=== PATIENT | male | born 1950 | race Caucasian/White ===

== ENCOUNTER 2017-06-06 11:57 | Inpatient (IN) | payer OTHER ==
[~2017-06-06] VITALS: Ht 177.8 cm; Wt 95.3 kg
--- NOTE | ~2017-06-06 | EKG ---
[address] [address] ELECTROCARDIOGRAM REPORT Name: NATALIA SERVIN MARIELLA Room #: 212-P ADM IN M.R.#: [id number] Admission: 06/06/17 Attend Phys: Wander Knapp DO Discharge: Date of : 48 Report #: [id number] THIS REPORT FOR: //name// [facility] Test Date: 2017-06-06 Test Time: 14:05:06 Pat Name: NATALIA SERVIN Department: Room: 212 Gender: M Merchandising Intern: ABBEY : 1950 Requested By: Wander Knapp Order Number: [id number] MD: Matthew Fink Measurements Intervals [place] Rate: 65 P: 46 WI: 169 QRS: 41 QRSD: 79 T: 32 QT: 415 QTc: 432 Interpretive Statements Sinus rhythm nonspecific T-wave abnormalities Compared to ECG 02/25/1993 08:03:00 No significant changes Electronically Signed On 06-07-2017 10:28:17 CDT by Matthew Fink [email or web address] <ELECTRONICALLY SIGNED> By: Matthew Fink MD 06/07/17 1028 1405 1405 MD NGUYEN Dietz
--- NOTE | ~2017-06-06 | CATHLAB ---
[facility] [address] [place] [address] INVASIVE PROCEDURE REPORT Name: DIXIEAUSTINNATALIA MARIELLA Room #: 212-P [facility] IN ..#: [id number] Admission: 06/06/17 Attend Phys: Wander Knapp, Discharge: Date of : 48 Date of Service: 06/06/17 1657 Report #: [id number] THIS REPORT FOR: //name// APPROVED REPORT Study performed: 06/06/2017 15:16:51 Patient Details Patient Status: In-Patient Room #: The patient is a 66 year-old male Event Personnel Matthew Fink Director [employer], Celeste Roldan Monitor, Violeta Luna RTR, Cherelle Bro Wes cleaning associate Performed Art Access - R femoral artery* Left Heart Cath w/or w/o Coronaries 2901318 [facility] ROHIT Revasc AMI Total/Sub Single LAD C9606 AMIREVSING 03885 Initial Mod Sed Same Phys/QHP Gr5y 868041 42119 Mod Sed Same Phys/QHP Ea 318790 Hemostasis with Manual pressure Indication Non-STEMI , Dyspnea, Chest pain Risk Factors Obesity, Hypercholesterolemia, Hypertension, Diabetes Procedure Narrative The patient was brought urgently to the Cardiac Catheterization Laboratory and was prepped and draped in a sterile manner. The Right Groin^ was infiltrated with 1% Lidocaine subcutaneous anesthesia. A PINNACLE 4FR Sheath #[id number] sheath was inserted into the RFA^. Coronary angiography was performed using coronary diagnostic catheters. The right coronary system was accessed and visualized with a JR 4 catheter. The left coronary system was accessed and visualized with a JL 4 catheter. The left ventricle was accessed and visualized with a Pigtail catheter. Left ventricular/Aortic Valve gradient assessed via catheter pullback. Left ventriculogram was performed in ALY projection. The patient tolerated the procedure well and there were no complications associated with the procedure. There was no hematoma. Sheath was sutured into place Intraoperative Conscious Sedation Sedation start time: 15:55 Case end Time: [facility] [address] [place] [address] INVASIVE PROCEDURE REPORT Name: DIXIEAUSTINNATALIA MARIELLA Room #: 212-P [facility] IN [facility]#: [id number] Admission: 06/06/17 Attend Phys: Wander Knapp, Discharge: Date of : 48 Date of Service: 06/06/17 1657 Report #: [id number] 16:37 Fentanyl 50 mcg Versed 1.5 mg Fluoro Time: 9.31 minutes Dose: DAP 52315.80 cGycm2 1447 mGy Contrast Type and Amount: Omnipaque 210 ml Coronary Angiography The patient's coronary anatomy is co- dominant. Diagnostic Cath Left Main Patent vessel, with no flow-limiting lesions. LAD There is moderate stenosis in the proximal segment, 40%. There is 100% occlusion within the mid segment. The distal segment is partially filled via collateral circulation. Circumflex Codominant vessel, with mild disease in the proximal segment. OM1 Supplies 2 branches after the proximal segment. The superior branch has moderate diffuse disease. OM2 Patent vessel, with no flow-limiting lesions. Right Coronary Patent vessel, with no flow-limiting lesions. R PDA Small-caliber vessel, with no flow-limiting lesions. Left Ventriculography The left ventricle is normal in size with decreased contractility. The left ventricular ejection fraction is estimated to be 40-45%. There is hypokinesis of the distal anteroapical and distal inferior segments. Hemodynamics The aortic pressure is 160/67 mmHg with a mean of 107 mmHg. The left ventricular pressure is 126/22 mmHg with a mean of mmHg. The left ventricular end diastolic pressure is 37 mmHg. PCI Technique Lesion Anticoagulation was achieved with Angiomax. Patient was preloaded with Plavix. Percutaneous coronary intervention was performed on the mid left anterior descending artery segment. The lesion stenosis prior to intervention was 99% with ANEUDY 1 flow. A VISTA 6FR JL4 #[id number] Guide Catheter was used to engage the ostium. A Runthrough Wire .014 X 180 #[id number] Interventional Guidewire was used to cross the lesion. BALLOON DILATION A Balloon catheter Euphora RX 2.5 x 12 #[id number] was inserted and inflated up to 8.00atm for 10seconds. [facility] [address] [place] [address] INVASIVE PROCEDURE REPORT Name: NATALIA SERVIN Room #: 212-P [facility] IN M.R.#: [id number] Admission: 06/06/17 Attend Phys: Wander Knapp, Discharge: Date of : 48 Date of Service: 06/06/17 1657 Report #: [id number] STENT DEPLOYMENT A drug-eluting stent RESOLUTE RX 3.0 X 15 #[id number] was inserted and inflated up to 9.00atm for 20seconds. POST STENT DEPLOYMENT BALLOON DILATION A Balloon catheter [employer] limited[employer] NC 3 x 8 was inserted and inflated up to 16.00atm for 23seconds. Final angiography reveals 0 % stenosis with ANEUDY 3 flow. Conclusion 1. Successful insertion of a drug-eluting stent into the total occlusion within the mid segment of the LAD, with mandaen of ANEUDY-3 blood flow. 2. Codominant left circumflex system. There is moderate disease in the first OM. 3. Mild to moderate segmental LV dysfunction. 4. Recommend dual antiplatelet therapy. <ELECTRONICALLY SIGNED> By: Matthew Fink MD 06/06/171656 56 56 Matthew Fink MD /INF
--- NOTE | ~2017-06-06 | EKG ---
[address] [place] [address] ELECTROCARDIOGRAM REPORT Name: DIXIEAUSTINNATALIA Room #: 212- ADM IN M.R.#: [id number] Admission: 06/06/17 Attend Phys: Wander Knapp DO Discharge: Date of : 48 Report #: [id number] THIS REPORT FOR: //name// [facility] Test Date: 2017-06-07 Test Time: 06:59:53 Pat Name: NATALIA SERVIN Department: Room: 212 P Gender: M Locomotive Driver: kelly : 1950 Requested By: Matthew Fink Order Number: [id number] MD: Matthew Fink Measurements Intervals [place] Rate: 78 P: 49 MI: 150 QRS: 41 QRSD: 75 T: 52 QT: 441 QTc: 503 Interpretive Statements Sinus rhythm Abnormal T, consider ischemia, anterior leads Prolonged QT interval Compared to ECG 02/25/1993 08:03:00 T-wave abnormality now present Possible ischemia now present Prolonged QT interval now present Electronically Signed On 06-07-2017 10:36:28 CDT by Matthew Fink [email or web address] <ELECTRONICALLY SIGNED> By: Matthew Fink MD 06/07/17 1036 0659 0659 Matthew Fink MD /LUKAS
--- NOTE | ~2017-06-06 | EKG ---
[address] [place] [address] ELECTROCARDIOGRAM REPORT Name: ZEYAD SERVINHANNA Room #: 212-P ADM IN M.R.#: [id number] Admission: 06/06/17 Attend Phys: Wander Knapp DO Discharge: Date of : 48 Report #: [id number] THIS REPORT FOR: //name// [facility] Test Date: 2017-06-06 Test Time: 17:28:39 Pat Name: NATALIA SERVIN Department: Room: 212 P Gender: M Air Director: Kathya OBRIEN : 1950 Requested By: Matthew Fink Order Number: [id number] MD: Matthew Fink Measurements Intervals [place] Rate: 88 P: 97 KS: 249 QRS: 42 QRSD: 87 T: 31 QT: 377 QTc: 457 Interpretive Statements Sinus rhythm Prolonged KS interval Consider left atrial enlargement Minimal ST depression, lateral leads Borderline ST elevation, anterior leads Compared to ECG 02/25/1993 08:03:00 First degree AV block now present ST (T wave) deviation now present Electronically Signed On 06-07-2017 10:30:53 CDT by Matthew Fink [email or web address] <ELECTRONICALLY SIGNED> By: Matthew Fink MD 06/07/17 1030 1728 1728 Matthew Fink MD /EPI
[2017-06-06 13:26] VITALS: BP 158/88
[2017-06-06 14:40] LABS: HEMATOCRIT 45.7 % (42.0-52.0); HEMOGLOBIN 15.8 gm/dL (14.0-18.0); MCHC 34.5 g/dL (28.0-37.0); MCV 81.2 fL (80.0-100.0); RBC 5.63 mil/uL (4.50-6.00); RDW 13.4 % (10.5-14.5); WBC 14.7 thou/uL (4.0-11.0)
[2017-06-06 14:55] LABS: CALCIUM 9.1 mg/dL (8.5-10.1); CREATININE 0.8 mg/dL (0.7-1.3); POTASSIUM 3.6 mmol/L (3.5-5.1)
[2017-06-06] MEDS ORDERED: WELCHOL 625 MG625 MG PO (14:59)
[2017-06-06] MEDS ORDERED: NEURONTIN600 MG PO (15:00)
[2017-06-06] MEDS ORDERED: AMARYL4 MG PO (15:00)
[2017-06-06] MEDS ORDERED: GLUCOPHAGE XR500 MG PO (15:02)
[2017-06-06] MEDS ORDERED: ATENOLOL 100MG100 M2 PO (15:03)
[2017-06-06] MEDS ORDERED: ZANAFLEX4 MG PO (15:06)
[2017-06-06] MEDS ORDERED: NEXIUM40 MG PO (15:07)
[2017-06-06] MEDS ORDERED: NOVOLOG100 UNIT/1 SUBQ (15:08)
[2017-06-06] MEDS ORDERED: LEVEMIR100 UNIT/1 SUBQ (15:09)
[2017-06-06] MEDS ORDERED: TRAMADOL 50 MG50 MG PO (15:10)
[2017-06-06 15:11] LABS: INR 1.1; PROTIME 11.5 Seconds (9.3-11.4)
[2017-06-06] MEDS ORDERED: VASOTEC5 MG PO (15:11)
[2017-06-06] MEDS ORDERED: NITRO-DUR1 EAC1 TRANSDERM (15:15)
[2017-06-06] MEDS ORDERED: NITROGLYCERIN0.4 MG SUBLING (16:05)
[2017-06-06 17:00] VITALS: BP 173/88
[2017-06-07 03:13] VITALS: BP 132/54
[2017-06-07 07:25] VITALS: BP 151/71
[2017-06-07] MEDS ORDERED: CLOPIDOGREL75 MG PO (08:39)
[2017-06-07] MEDS ORDERED: ATORVASTATIN CA40 MG PO (08:39)
[2017-06-07] MEDS ORDERED: COREG6.25 MG PO (08:40)
[2017-06-07] MEDS ORDERED: ENALAPRIL MALEAT5 M1 PO (08:40)
[2017-06-07 10:47] VITALS: BP 151/71
== END 2017-06-07 11:13 | disposition home or self-care (01) | DRG 246 ==
LOC: 2N 11:57
PROVIDERS: Family Medicine
PROC: B2111ZZ Fluoroscopy of Multiple Coronary Arteries using Low Osmolar Contrast (ICD-10-PCS; principal; 2017-06-06)
PROC: 027034Z Dilation of Coronary Artery, One Artery with Drug-eluting Intraluminal Device, Percutaneous Approach (ICD-10-PCS; principal; 2017-06-06)
PROC: B2151ZZ Fluoroscopy of Left Heart using Low Osmolar Contrast (ICD-10-PCS; principal; 2017-06-06)
PROC: 4A023N7 Measurement of Cardiac Sampling and Pressure, Left Heart, Percutaneous Approach (ICD-10-PCS; principal; 2017-06-06)
DX: I21.4 Non-ST elevation (NSTEMI) myocardial infarction (principal); I50.43 Acute on chronic combined systolic (congestive) and diastolic (congestive) heart failure; E11.9 Type 2 diabetes mellitus without complications; F41.9 Anxiety disorder, unspecified; I25.10 Atherosclerotic heart disease of native coronary artery without angina pectoris; E78.5 Hyperlipidemia, unspecified; K21.9 Gastro-esophageal reflux disease without esophagitis; G89.29 Other chronic pain; M54.9 Dorsalgia, unspecified; Z89.9 Acquired absence of limb, unspecified; Z82.49 Family history of ischemic heart disease and other diseases of the circulatory system; Z88.0 Allergy status to penicillin; Z79.899 Other long term (current) drug therapy; Z79.82 Long term (current) use of aspirin; I11.0 Hypertensive heart disease with heart failure
CPT/HCPCS: 10797

== ENCOUNTER → 2020-08-23 | Outpatient (CLI) | payer OTHER ==
[~2020-08-23] MED LIST: AMARYL4 MG PO; ATENOLOL 100MG100 M2 PO; ATORVASTATIN CA40 MG PO; CLOPIDOGREL75 MG PO; COREG6.25 MG PO; ENALAPRIL MALEAT5 M1 PO; GLUCOPHAGE XR500 MG PO; LEVEMIR100 UNIT/1 SUBQ; NEURONTIN600 MG PO; NEXIUM40 MG PO; NITRO-DUR1 EAC1 TRANSDERM; NITROGLYCERIN0.4 MG SUBLING; NOVOLOG100 UNIT/1 SUBQ; TRAMADOL 50 MG50 MG PO; VASOTEC5 MG PO; WELCHOL 625 MG625 MG PO; ZANAFLEX4 MG PO
== END ==
LOC: CAT 09:37
PROVIDERS: ATTEND Family Medicine
DX: M43.16 Spondylolisthesis, lumbar region (principal); M25.78 Osteophyte, vertebrae; M50.323 Other cervical disc degeneration at C6-C7 level; M48.02 Spinal stenosis, cervical region; M50.33 Other cervical disc degeneration, cervicothoracic region; M51.36 Other intervertebral disc degeneration, lumbar region; M51.26 Other intervertebral disc displacement, lumbar region

== ENCOUNTER 2020-09-10 11:28 | Inpatient (IN) | payer OTHER ==
[~2020-09-10] VITALS: Ht 177.8 cm; Wt 84.8 kg
[2020-09-10 11:28] VITALS: BP 182/77
[2020-09-10 12:11] LABS: ABSOLUTE NEUTROPHILS 6.5 thou/uL (1.4-8.2); EOSINOPHILS 1.7 % (0.0-3.0); HEMATOCRIT 44.2 % (42.0-52.0); HEMOGLOBIN 15.3 gm/dL (14.0-18.0); LYMPHOCYTES 21.9 % (24.0-44.0); MCH 29.1 pg (26.0-34.0); MCHC 34.7 g/dL (28.0-37.0); MCV 83.8 fL (80.0-100.0); MONOCYTES 10.4 % (1.0-8.0); PLATELET COUNT 193 thou/uL (150-400); RBC 5.27 mil/uL (4.50-6.00)
[2020-09-10 12:17] LABS: ANION GAP 9 mmol/L (7-16); BUN 13 mg/dL (7-18); CALCIUM 9.3 mg/dL (8.5-10.1); CHLORIDE 103 mmol/L (98-107); CO2 25 mmol/L (21-32); CREATININE 1.1 mg/dL (0.7-1.3); GLUCOSE 265 mg/dL (74-106); POTASSIUM 3.6 mmol/L (3.5-5.1); SODIUM 137 mmol/L (136-145)
[2020-09-10 12:27] LABS: ALBUMIN 3.1 g/dL (3.4-5.0); MAGNESIUM 1.9 mg/dL (1.8-2.4); SGOT 26 U/L (15-37); SGPT 27 U/L (16-63); TOTAL BILIRUBIN 0.6 mg/dL (0.2-1.0); TOTAL PROTEIN 7.2 g/dL (6.4-8.2); TROPONIN-I <0.06 ng/mL (<0.06)
--- NOTE | 2020-09-10 12:34 | EKG ---
[address] [place] [address] ELECTROCARDIOGRAM REPORT Name: NATALIA SERVIN MARIELLA [id number] Admission: 09/10/20 Attend Phys: Discharge: Date of : 48 Report #: [id number] [facility] ED Test Date: 2020-09-10 Test Time: 11:29:59 Pat Name: NATALIA SERVIN Department: Room: Gender: M School Bus Driver/Custodian: JCFE : 1950 Requested By: Jo Ann Bonilla Order Number: [id number] MD: Car Palma Measurements Intervals [place] Rate: 59 P: 51 MT: 194 QRS: 21 QRSD: 84 T: 70 QT: 415 QTc: 412 Interpretive Statements Sinus rhythm Compared to ECG 06/07/2017 06:59:53 anterior wall ischemic changes previous ECG Electronically Signed On 09-10-2020 12:33:43 CDT by Car Palma [email or web address] <ELECTRONICALLY SIGNED> By: Car Palma MD, [facility] 09/10/20 1233 1129 1129 Car Palma MD, FACC /EPI
[2020-09-10 13:52] LABS: URINE BILIRUBIN NEGATIVE (Negative); URINE BLOOD NEGATIVE (Negative); URINE CLARITY CLEAR; URINE COLOR YELLOW; URINE GLUCOSE-RANDOM* 2+ (Negative); URINE KETONES NEGATIVE (Negative); URINE LEUKOCYTES-REFLEX NEGATIVE (Negative); URINE NITRITE-REFLEX NEGATIVE (Negative); URINE PROTEIN (DIPSTICK) NEGATIVE (Negative); URINE UROBILINOGEN 0.2 E.U./dl (0.2-1.0)
[2020-09-10 16:37] VITALS: BP 150/74
[2020-09-10 16:50] VITALS: BP 176/73
[2020-09-10 17:07] LABS: CHOLESTEROL 224 mg/dL (<200); HDL CHOLESTEROL 31 mg/dL (>40); LDL CHOLESTEROL 164 mg/dL (<100); TC:HDL 7.2 Ratio (Not establshd); TRIGLYCERIDE 149 mg/dL (<150); VLDL 30 mg/dL (<40)
[2020-09-10] MEDS ORDERED: METFORMIN HCL500 MG PO (19:17)
--- NOTE | 2020-09-10 19:59 | NUR ---
Pt arrived to floor from emergency dept around 1725 in stable condition. Admission hx,assessment and careplan completed.Pt son reported that home med list was given to EMS on their way to [facility] from [facility] but never given back to them.Dinner tray given and well tolerated. Son will be leaving for home before 2099. Report off to melissa rn.
--- NOTE | 2020-09-11 04:35 | NUR ---
Pt. requesting pain meds and Ava LAMAS called and she put some of the patients home meds in. Pain med given (see emar) with some relief. He has been voiding per urinal. Bed alarm is on.
[2020-09-11 05:06] LABS: GLYCOHEMOGLOBIN (HGB A1C) 12.5 % (4.8-5.6)
[2020-09-11 07:15] VITALS: BP 162/83
[2020-09-11 15:50] VITALS: BP 117/60
--- NOTE | 2020-09-11 18:41 | NUR ---
ASSUMED CARE OF PATIENT AT SHIFT CHANGE. ASSESSMENT CHARTED. MEDICATIONS GIVEN PER MAR. VSS. PATIENT IS A&OX4 AND MAKES NEEDS KNOWNL PATIENT IS ALSO EAGLE. PATIENT WORKED WITH PT/OT AND DID WELL BUT DOES CONTINUE TO HAVE DIZZINESS IF MOVING TOO FAST AND WHEN TURING HEAD FROM SIDE TO SIDE. PATIENT USING URINAL NEEDED BUT CAN GET UP TO BATHROOM WITH STANDBY ASSISTANCE. PATIENT IS TOLERATING PO INTAKE WELL HOWEVER FSBS HIGH. PATIENT VOICING PAIN RELIEVED BY MUSCLE RELAXER. WILL NEED TRAMADOL HS FOR SLEEP. PATIENT IS PROGRESSING WELL TOWARDS DISCHARGE; VOICING NO OTHER NEEDS. WILL CONTINUE TO MONITOR AND ENDORSE TO ONCOMING NURSE
[2020-09-11 19:50] VITALS: BP 138/70
--- NOTE | 2020-09-12 04:33 | NUR ---
Pt. rested quietly at intervals during the night when checked on during frequent rounds. He was given po pain med (see emar) with some relief of pain noted. Bed alarm is on.
[2020-09-12 08:09] VITALS: BP 126/55
[2020-09-12 12:58] VITALS: BP 126/55
--- NOTE | 2020-09-12 15:30 | NUR ---
Assumed pt care at 7am.Pt in bed very anxious about going for mri today. Assessment completed.vss. Dr Alberto here,stated that pt will be dc home after mri and possibly after lunch.Pt left for mri after breakfast and returned to room. Mri result was negative. Later this afternoon ,dc order noted but pt wanted to stay till next day due to lack of air condition in the mobile home. manager star notified, she give pt cab voucher. Dc summary compile and reviewed with pt.At 1430,pt dc home per wc accompanied by broadloom weaver.
--- NOTE | 2020-09-12 15:34 | NUR ---
PT ADMITTED RELATED TO VERTIGO, ATAXIA, AND HYPERGLYCEMIA. CM REVIEWED CHART AND SPOKE WITH CARE TEAM. CM MET WITH PT BEDSIDE THIS DAY. HE INDICATED THAT HE RESIDES IN A HOUSE WITH HIS SON IN [place]. HE STATED THERE ARE 5 STEPS TO ENTER AND NONE INSIDE. 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 PT INDICATED HE WOULD PREFER TO DC TOMORROW AM THEIR CAR DOESN'T HAVE AC. CARE TEAM INDICATED THAT PT IS READY FOR DM. CM REQUESTED AND RECEIVED PERMISSION TO PROVIDE CAB RIDE HOME THIS DAY. PT WAS RECEPTIVE AND NOTIFIED HIS SON SO HE COULD LEAFE DOOR UNLOCKED. PT DISCHARGED HOME THIS AFTERNOON. NO OTHER CM INTERVENTION INDICATED. CASE CLOSED.
== END 2020-09-12 15:15 | disposition home or self-care (01) | DRG 149 ==
LOC: ER 11:28 → 4W 16:20 → EROBS 16:20 → 4W 16:56
PROVIDERS: Emergency Medicine; Psychiatry & Neurology Neurology; ADMIT Internal Medicine; ATTEND Internal Medicine
DX: H81.10 Benign paroxysmal vertigo, unspecified ear (principal); I10 Essential (primary) hypertension; K21.9 Gastro-esophageal reflux disease without esophagitis; E11.65 Type 2 diabetes mellitus with hyperglycemia; R27.0 Ataxia, unspecified; M47.812 Spondylosis without myelopathy or radiculopathy, cervical region; Z20.822 Contact with and (suspected) exposure to COVID-19; Z79.01 Long term (current) use of anticoagulants; Z79.899 Other long term (current) drug therapy; Z79.4 Long term (current) use of insulin; Z88.5 Allergy status to narcotic agent; I25.2 Old myocardial infarction
CPT/HCPCS: 10045